=== PATIENT | female | born 1980 | race Hispanic/Latino ===

== ENCOUNTER 2022-10-28 17:17 | Emergency (ER) | payer OTHER ==
[~2022-10-28] VITALS: Ht 160 cm; Wt 81.6 kg
[2022-10-28 17:28] VITALS: BP 142/89
[2022-10-28 23:23] LABS: APPEARANCE,URINE CLOUDY (CLEAR); BILIRUBIN,URINE NEGATIVE (NEGATIVE); COLOR,URINE LIGHT-ORANGE (YELLOW); GLUCOSE, URINE (UA) NEGATIVE (NEGATIVE); KETONES,URINE NEGATIVE (NEGATIVE); LEUKOCYTE ESTERASE ,URINE 25 Leu/uL (NEGATIVE); NITRATE,URINE NEGATIVE (NEGATIVE); OCCULT BLOOD,URINE LARGE (NEGATIVE); PH,URINE 5.5 (5.0-8.0); PROTEIN,URINE 50 mg/dL (NEGATIVE); UROBILINOGEN,URINE 0.2 mg/dL (0.2-1.0)
[2022-10-28 23:31] LABS: BACTERIA,URINE RARE /HPF (None Seen); MUCUS,URINE RARE LPF (None Seen); RBC,URINE TNTC /HPF (0-1); SQUAMOUS EPITHELIAL CELL,UR FEW /HPF (0-2); WBC,URINE 26-50 /HPF (0-1)
[2022-10-28 23:37] LABS: AMPHET/METH SCREEN,URINE NEGATIVE (NEGATIVE); BARBITURATE SCREEN, URINE NEGATIVE (NEGATIVE); BENZODIAZEPINES SCREEN,URINE NEGATIVE (NEGATIVE); CANNABINOID SCREEN,URINE NEGATIVE (NEGATIVE); COCAINE SCREEN,URINE NEGATIVE (NEGATIVE); OPIATE SCREEN,URINE NEGATIVE (NEGATIVE); PHENCYCLIDINE SCREEN,URINE NEGATIVE (NEGATIVE)
[2022-10-29] MEDS ORDERED: KETOROLAC 30MG VIAL (30MG/ML) IM ONE
[2022-10-29] MEDS ORDERED: MECL-160 PO (00:09)
[2022-10-29] MEDS ORDERED: IBUP-2070 PO (00:09)
[2022-10-29] MEDS ORDERED: NITR100C PO (00:09)
[2022-10-29] MEDS: 0.9%NACL 1000ML 1,000 ML IV ONE ×2 (00:22→00:26)
[2022-10-29] MEDS: CEFTRIAXONE 1G VIAL IVPB ONE ×2 (00:22→00:26)
[2022-10-29] MEDS: KETOROLAC 30MG VIAL (30MG/ML) IVP ONE ×2 (00:22→00:26)
[2022-10-29] MEDS ORDERED: MECLIZINE HCL 25 MG TABLET PO ONE (00:30)
== END 2022-10-29 00:42 | disposition home or self-care (01) ==
LOC: EDH 17:17
DX: S40.012A Contusion of left shoulder, initial encounter (principal); R42 Dizziness and giddiness; N39.0 Urinary tract infection, site not specified; Z98.890 Other specified postprocedural states; Z91.010 Allergy to peanuts; W18.39XA Other fall on same level, initial encounter; Y93.89 Activity, other specified; Y92.89 Other specified places as the place of occurrence of the external cause; Y99.8 Other external cause status
CPT/HCPCS: 99284; 70450; 80305; 87088; 81025; 72125; 81001; J7030; J0696; J1885